=== PATIENT | female | born 1985 | race African-American/Black ===

== ENCOUNTER 2021-11-09 16:28 | Emergency (ER) | payer OTHER, SELFPAY ==
[2021-11-09 17:46] VITALS: BP 125/83; PULSE 84; RESP 16; O2SAT 100; BMI 25.8
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
== END 2021-11-09 21:52 | disposition home or self-care (01) ==
PROVIDERS: Emergency Provider Emergency Medicine; PCP Physician Assistant
DX: S16.1XXA Strain of muscle, fascia and tendon at neck level, initial encounter (principal); S39.012A Strain of muscle, fascia and tendon of lower back, initial encounter; R51.9 Headache, unspecified; V43.52XA Car driver injured in collision with other type car in traffic accident, initial encounter; Y93.9 Activity, unspecified; Y92.410 Unspecified street and highway as the place of occurrence of the external cause; Y99.9 Unspecified external cause status; Z79.899 Other long term (current) drug therapy
CPT/HCPCS: 99282; 99283